=== PATIENT | female | born 1975 | race African-American/Black ===

== ENCOUNTER 2025-07-19 09:44 | Outpatient (CLI) | payer BC, SELFPAY ==
--- NOTE | ~2025-07-19 | MR_ITS ---
MR breast BI wo/w con INDICATION:50 year old female with family history of breast cancer and elevated lifetime risk of breast cancer presents for high-risk screening bilateral breast MRI. TECHNIQUE: MRI of the breasts perform using standard protocol pre-and post IV contrast with the following sequences: Axial T2 STIR, axial T1, axial vibrant T1 with fat suppression precontrast and multiphasic postcontrast. 16 cc MultiHance administered intravenously. COMPARISON: Mammogram and ultrasound dated 01/30/2025 through 04/08/2021. FINDINGS: There is Heterogeneous fibroglandular tissue that demonstrates Moderate enhancement and is Symmetric. Right breast: There are no abnormalities on the precontrast sequences. There is moderate background parenchymal enhancement. No enhancing lesions following contrast administration. No areas of enhancement meeting threshold criteria on CAD analysis. Nipple areolar complex is normal in appearance. No evidence of signal abnormalities in the axillary or internal mammary node distributions. LEFT BREAST: No signal abnormalities on precontrast sequences. There is moderate background parenchymal enhancement. No enhancing lesions following contrast administration. No areas of enhancement meeting threshold criteria on CAD analysis. The nipple areolar complex is normal in appearance. No evidence of signal abnormalities in the axillary or internal mammary node distributions.] IMPRESSION: 1: Right breast: Negative. 2. Left breast: Negative. No evidence of malignancy. 3. The chest wall and axillary portion of the examination unremarkable. RECOMMENDATION: Follow-up MRI may be useful for supplementing mammographic evaluation as clinically indicated. BI-RADS Category 1: Negative Reviewed, dictated and finalized at location A. 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 2. Left breast: Negative. No evidence of malignancy. 3. The chest wall and axillary portion of the examination unremarkable. RECOMMENDATION: Follow-up MRI may be useful for supplementing mammographic evaluation as clinic ally indicated. BI-RADS Category 1: Negative
== END 2025-07-19 09:45 | disposition home or self-care (01) ==
PROVIDERS: Visit Provider Surgery
DX: Z12.31 Encounter for screening mammogram for malignant neoplasm of breast (principal); Z91.89 Other specified personal risk factors, not elsewhere classified; Z80.3 Family history of malignant neoplasm of breast
CPT/HCPCS: 77049; A9577; C8908